=== PATIENT | male | born 1975 | race American Indian/Alaskan Native ===

== ENCOUNTER 2019-07-22 10:07 | Observation (INO) | payer BC ==
[2019-07-22] MEDS ORDERED: APRESOLINE IV ONE ×2 (10:44→11:44)
--- NOTE | 2019-07-22 10:44 | Emergency Department Report ---
ED Chest Pain HPI - General Chief Complaint: Headache Stated Complaint: HEADACHE/TIGHTNESS OF SHOULDERS Source: patient Mode of arrival: Ambulatory Limitations: No Limitations - History of Present Illness Initial Comments: 44 YO AA MALE WHO COMES TO ER TODAY WITH WORSENING HEADACHE FOR SEVERAL DAYS AND "TIGHTNESS" IN HIS LEFT SHOULDER AREA FOR A DAY. PT GOT OFF WORK THIS AM AND STATES HE THOUGHT IF HE RESTED HE WOULD FEEL BETTER. SO HE RESTED IN TRUCK AND WHEN HE GOT UP HE REPORTED FEELING NO BETTER. HE COMES TO ER FOR EVAL PMH OBESE HTN- ON LISINOPRIL 10MG DAILY FAMILY HX CAD/CVA AT YOUNG AGE; MOTHER AT 55 OF [place] AND BROTHER AT 34 OF CVA PSH R ARM SURGERY NO CIG/ETOH/DRUGS REPORTS HE DOES WORK OUT DENIES SOB. HE DOES STATE THAT HIS PAIN HAS OCCURRED WITH REST; AND SUBSIDES WITH REST. HE DENIES SOB OR SWELLING PT DOES ENDORSE PALPITATIONS; WHICH HAVE WOKE HIM UP AT NIGHT; OCCURRING OVER THE PAST COUPLE WEEKS. USUAL CARE AT [facility] MD Complaint: chest pain -: Gradual, hour(s), days(s) Onset: during rest, during exertion Pain Location: other (l shoulder) Pain Radiation: none Severity: mild Severity scale (0 -10): 4 Quality: tightness, aching, heaviness Consistency: intermittent Improves With: nothing Worsens With: exertion re: denies: nausea, vomting, diaphoresis, dyspnea, sense of impending doom Other Symptoms: palpitations. denies: cough, fever, syncope, rash, acid taste in mouth, leg swelling Treatments Prior to Arrival: none Aspirin use within the Past 7 Days: (0) No - Related Data On Oral Contraceptives: No Allergies Allergy/AdvReac Type Severity Reaction Status Date / Time No Known Allergies Allergy Verified 07/22/19 10:13 Heart Score - HEART Score History: Moderately suspicious EKG: Non-specific Age: < 45 Risk factors: > 3 risk factors or hx of atherosclerotic disease Troponin: < normal limit HEART Score: 4 ED Review of Systems ROS: Stated complaint: HEADACHE/TIGHTNESS OF SHOULDERS Other details as noted in HPI Comment: All other systems reviewed and negative Respiratory: no symptoms reported. denies: cough Cardiovascular: as per HPI ED Past Medical Hx - Past Medical History Hx Hypertension: Yes Additional medical history: obese - Surgical History Past Surgical History?: No - Family History Family history: other (mother AMI at 55y; brother of massive CVA at 34 yo) - Social History Smoking Status: Never Smoker Substance Use Type: None ED Physical Exam - General Limitations: No Limitations General appearance: alert - Head Head exam: Present: normocephalic - Eye Eye exam: Present: PERRL - ENT ENT exam: Present: mucous membranes moist - Neck Neck exam: Present: normal inspection - Respiratory Respiratory exam: Present: normal lung sounds bilaterally - Cardiovascular Cardiovascular Exam: Present: regular rate - GI/Abdominal GI/Abdominal exam: Present: soft - Rectal Rectal exam: Present: deferred - Extremities Exam Extremities exam: Present: normal inspection - Back Exam Back exam: Present: normal inspection - Neurological Exam Neurological exam: Present: alert, oriented X3, CN II-XII intact - Psychiatric Psychiatric exam: Present: normal affect, normal mood - Skin Skin exam: Present: warm, dry, intact ED Course Vital Signs 07/22/19 07/22/19 07/22/19 10:11 10:59 11:06 Temperature 97.7 F 98 F Pulse Rate 72 70 70 Respiratory 17 16 Rate Blood Pressure 175/124 118/110 Blood Pressure 181/110 [Left] O2 Sat by Pulse 98 Oximetry 07/22/19 07/22/19 07/22/19 11:49 12:30 13:51 Temperature 97.8 F Pulse Rate 75 89 93 H Respiratory 18 16 Rate Blood Pressure 186/130 Blood Pressure 187/105 166/102 [Left] O2 Sat by Pulse 100 98 Oximetry SIOMARA score - Siomara Score Age > 65: (0) No Aspirin use within the Past 7 Days: (0) No 3 or more CAD Risk Factors: (1) Yes 2 or more Angina events in past 24 hrs: (1) Yes Known CAD with more than 50% Stenosis: (0) No Elevated Cardiac Markers: (0) No ST Deviation Greater than 0.5mm: (0) No SIOMARA Score: 2 ED Medical Decision Making - Lab Data Result diagrams: 07/22/19 10:58 07/22/19 10:58 - EKG Data -: EKG Interpreted by Me EKG shows normal: sinus rhythm Rate: normal - EKG Data When compared to previous EKG there are: previous EKG unavailable Interpretation: nonspecific ST-T wave michael 07/22/19 1045 T wave inversion V4-V6 repeat EKG at 1148 T wave inversion V4-V6 and T wave inversion II - Radiology Data Radiology results: report reviewed, image reviewed - Medical Decision Making Labs 07/22/19 07/22/19 07/22/19 10:58 10:58 10:58 WBC 5.7 RBC 4.91 Hgb 14.6 Hct 43.3 MCV 88 MCH 30 MCHC 34 RDW 14.6 Plt Count 251 Lymph % (Auto) 34.9 [place] % (Auto) 9.8 H Eos % (Auto) 2.4 Baso % (Auto) 0.8 Lymph # 2.0 [place] # 0.6 Eos # 0.1 Baso # 0.0 Seg Neutrophils % 52.1 Seg Neutrophils # 2.9 Sodium 140 Potassium 4.1 Chloride 102.4 Carbon Dioxide 27 Anion Gap 15 BUN 16 Creatinine 1.0 Estimated GFR > 60 BUN/Creatinine Ratio 16 Glucose 112 H Calcium 8.8 Total Bilirubin 0.30 AST 31 ALT 26 Alkaline Phosphatase 70 Troponin T < 0.010 Total Protein 7.4 Albumin 4.2 Albumin/Globulin Ratio 1.3 Urine Bilirubin Neg Urine RBC (Auto) 1.0 Vital Signs 07/22/19 07/22/19 07/22/19 10:11 10:59 11:06 Temperature 97.7 F 98 F Pulse Rate 72 70 70 Respiratory 17 16 Rate Blood Pressure 175/124 118/110 Blood Pressure 181/110 [Left] O2 Sat by Pulse 98 Oximetry 07/22/19 07/22/19 11:49 12:30 Temperature 97.8 F Pulse Rate 75 89 Respiratory 18 Rate Blood Pressure 186/130 Blood Pressure 187/105 [Left] O2 Sat by Pulse 100 Oximetry LABS NOTED XRAY NOTED 12 LEAD NOTED REPEAT 12 LEAD NOTED WITH NOW INVERTED T IN LEAD II DISCUSSED WITH [address] DOUGLASS PT HAS NUMEROUS RISK FACTORS PT WAS GIVEN HYDRAL 10 MG IV WITH BP THEN 180/130 REPEAT HYDRAL AT NOW 20 MG IV GIVEN AND BP HAS NOT DEC CARDENE ULISSES ORDERED PT TO CARD MONITOR UA NORMAL HEAD CT NORMAL ASA GIVEN 1400 DISCUSSED CONCERNS WITH PT; HE STATES PAIN IS BETTER- BUT SAYS THIS HE IS RUBBING HIS CHEST 1430 DR HOLLAND CONTACTED FOR PT ADMIT REPEAT LABS ORDERED AND PENDING ADMIT TO ICU - Differential Diagnosis ro ACS/accelerated HTN/HTN urgency/CVA Critical care attestation.: If time is entered above; I have spent that time in minutes in the direct care of this critically ill patient, excluding procedure time. ED Disposition Clinical Impression: Hypertensive urgency, Chest pain, Obesity Disposition: DC09 OP ADMIT IP TO THIS HOSP Is pt being admited?: Yes Does the pt Need Aspirin: Yes Condition: Stable Time of Disposition: 12:34
[2019-07-22 11:09] LABS: Basophils % (Auto) 0.8 % (0.0-1.8); Eosinophils # (Auto) 0.1 K/mm3 (0.0-0.4); Eosinophils % (Auto) 2.4 % (0.0-4.3); Hematocrit 43.3 % (35.5-45.6); Hemoglobin 14.6 gm/dl (11.8-15.2); Lymphocytes % (Auto) 34.9 % (13.4-35.0); Mean Corpuscular HGB Conc 34 % (32-34); Mean Corpuscular Volume 88 fl (84-94); Monocytes # (Auto) 0.6 K/mm3 (0.0-0.8); Monocytes % (Auto) 9.8 % (0.0-7.3); Platelet Count 251 K/mm3 (140-440); Red Blood Count 4.91 M/mm3 (3.65-5.03); Red Cell Distribution Width 14.6 % (13.2-15.2)
--- NOTE | 2019-07-22 11:20 | XRay Report ---
CHEST 2 VIEWS INDICATION: Chest Pain. COMPARISON: None FINDINGS: Support devices: None. Heart: Within normal limits. Lungs/pleura: No acute air space or interstitial disease. No pneumothorax. Additional findings: None. IMPRESSION: No acute findings. Signer Name: Sanchez Velasco Jr, MD Signed: 07/22/2019 11:16 AM Workstation Name: [id number]
[2019-07-22 11:31] LABS: Alanine Aminotransferase 26 units/L (7-56); Albumin 4.2 g/dL (3.9-5); BUN/Creatinine Ratio 16; Blood Urea Nitrogen 16 mg/dL (9-20); Calcium 8.8 mg/dL (8.4-10.2); Hemolysis Index 12
[2019-07-22 12:33] LABS: Bilirubin,Urine NEG (Negative); Blood,Urine NEG (Negative); Color,Urine Yellow (Yellow); Hyaline Casts,Urine 1 /LPF; Mucus,Urine FEW /HPF; Protein,Urine <15 mg/dL mg/dL (Negative); Urobilinogen,Urine < 2.0 mg/dL (<2.0)
[2019-07-22] MEDS ORDERED: BABY ASPIRIN PO ONE (12:34)
[2019-07-22 12:51] LABS: WBC,Urine < 1.0 /HPF (0.0-6.0)
[2019-07-22] MEDS ORDERED: CARDENE 50 MG in NACL 0.9% 250ML 230 ML IV SCH (13:00)
--- NOTE | 2019-07-22 13:19 | Cat Scan Report ---
CT HEAD WITHOUT CONTRAST INDICATION : headache HTN. TECHNIQUE: Axial imaging performed from the skull apex through the skull base without the use of con trast. All CT scans at this location are performed using CT dose reduction for ALARA by means of aut omated exposure control. COMPARISON: None FINDINGS: Parenchyma: No abnormal density. No mass, hemorrhage or edema. Ventricles: Ventricles are normal in size and appear symmetric. Soft tissues: Soft tissues including the orbits appear normal. Bones: No acute osseous abnormality. Sinuses: Sinuses and mastoid air cells are clear. IMPRESSION: Normal head CT. Signer Name: Fernando oSto MD Signed: 07/22/2019 1:15 PM Workstation Name: [id number]
[2019-07-22] MEDS ORDERED: COREG PO STA (17:49)
[2019-07-22] MEDS ORDERED: COREG ONE (18:15)
[2019-07-22] MEDS ORDERED: APRESOLINE ONE (18:15)
[2019-07-22] MEDS: APRESOLINE PO SCH (18:30)
[2019-07-22] MEDS ORDERED: DILAUDID IV PRN (18:32)
[2019-07-22] MEDS ORDERED: TYLENOL PO ONE (20:07)
[2019-07-22] MEDS ORDERED: TYLENOL ONE (20:17)
[2019-07-22] MEDS ORDERED: TYLENOL PO PRN (21:12)
[2019-07-22] MEDS ORDERED: SODIUM CHLORIDE FLUSH SYRINGE 10 ML IV PRN (21:12)
[2019-07-22] MEDS ORDERED: ZOFRAN IV PRN (21:12)
[2019-07-22] MEDS ORDERED: PERCOCET 5/325 PO PRN (21:12)
[2019-07-22] MEDS ORDERED: IBUPROFEN PO PRN (21:12)
--- NOTE | 2019-07-22 21:12 | History and Physical Report ---
History of Present Illness Date of examination: 07/22/19 Date of admission: 07/22/19 14:07 Medications and Allergies Allergies Allergy/AdvReac Type Severity Reaction Status Date / Time No Known Allergies Allergy Verified 07/22/19 10:13 Home Medications Medication Instructions Recorded Confirmed Last Taken Type Lisinopril [Zestril TAB] 10 mg PO DAILY 07/22/19 07/22/19 07/21/19 History Active Meds: Active Medications Carvedilol (Coreg) 12.5 mg PO BID CHEVY Hydralazine HCl (Apresoline) 50 mg PO Q8H CHEVY Last Admin: 07/22/19 18:30 Dose: 50 mg Documented by: Hydromorphone HCl (Dilaudid) 0.5 mg IV Q3H PRN PRN Reason: Pain , Severe (7-10) Losartan Potassium (Cozaar) 100 mg PO DAILY ONE Stop: 07/23/19 08:01 Exam - Constitutional Vitals: Temp Pulse Resp BP Pulse Ox 97.8 F 84 18 144/91 94 07/22/19 12:30 07/22/19 20:32 07/22/19 18:30 07/22/19 21:00 07/22/19 21:00 Results - Labs CBC & Chem 7: 07/22/19 10:58 07/22/19 10:58 Labs: Laboratory Last Values WBC 5.7 K/mm3 (4.5-11.0) 07/22/19 10:58 RBC 4.91 M/mm3 (3.65-5.03) 07/22/19 10:58 Hgb 14.6 gm/dl (11.8-15.2) 07/22/19 10:58 Hct 43.3 % (35.5-45.6) 07/22/19 10:58 MCV 88 fl (84-94) 07/22/19 10:58 MCH 30 pg (28-32) 07/22/19 10:58 MCHC 34 % (32-34) 07/22/19 10:58 RDW 14.6 % (13.2-15.2) 07/22/19 10:58 Plt Count 251 K/mm3 (140-440) 07/22/19 10:58 Lymph % (Auto) 34.9 % (13.4-35.0) 07/22/19 10:58 [place] % (Auto) 9.8 % (0.0-7.3) H 07/22/19 10:58 Eos % (Auto) 2.4 % (0.0-4.3) 07/22/19 10:58 Baso % (Auto) 0.8 % (0.0-1.8) 07/22/19 10:58 Lymph # 2.0 K/mm3 (1.2-5.4) 07/22/19 10:58 [place] # 0.6 K/mm3 (0.0-0.8) 07/22/19 10:58 Eos # 0.1 K/mm3 (0.0-0.4) 07/22/19 10:58 Baso # 0.0 K/mm3 (0.0-0.1) 07/22/19 10:58 Seg Neutrophils % 52.1 % (40.0-70.0) 07/22/19 10:58 Seg Neutrophils # 2.9 K/mm3 (1.8-7.7) 07/22/19 10:58 D-Dimer 173.01 ng/mlDDU (0-234) 07/22/19 14:41 Sodium 140 mmol/L (137-145) 07/22/19 10:58 Potassium 4.1 mmol/L (3.6-5.0) 07/22/19 10:58 Chloride 102.4 mmol/L (98-107) 07/22/19 10:58 Carbon Dioxide 27 mmol/L (22-30) 07/22/19 10:58 Anion Gap 15 mmol/L 07/22/19 10:58 BUN 16 mg/dL (9-20) 07/22/19 10:58 Creatinine 1.0 mg/dL (0.8-1.5) 07/22/19 10:58 Estimated GFR > 60 ml/min 07/22/19 10:58 BUN/Creatinine Ratio 16 % 07/22/19 10:58 Glucose 112 mg/dL (75-100) H 07/22/19 10:58 Calcium 8.8 mg/dL (8.4-10.2) 07/22/19 10:58 Total Bilirubin 0.30 mg/dL (0.1-1.2) 07/22/19 10:58 AST 31 units/L (5-40) 07/22/19 10:58 ALT 26 units/L (7-56) 07/22/19 10:58 Alkaline Phosphatase 70 units/L (35-129) 07/22/19 10:58 Troponin T < 0.010 ng/mL (0.00-0.029) 07/22/19 14:41 Total Protein 7.4 g/dL (6.3-8.2) 07/22/19 10:58 Albumin 4.2 g/dL (3.9-5) 07/22/19 10:58 Albumin/Globulin Ratio 1.3 % 07/22/19 10:58 Urine Color Yellow (Yellow) 07/22/19 10:58 Urine Turbidity Clear (Clear) 07/22/19 10:58 Urine pH 5.0 (5.0-7.0) 07/22/19 10:58 Ur Specific [place] 1.015 (1.003-1.030) 07/22/19 10:58 Urine Protein <15 mg/dl mg/dL (Negative) 07/22/19 10:58 Urine Glucose (UA) Neg mg/dL (Negative) 07/22/19 10:58 Urine Ketones Neg mg/dL (Negative) 07/22/19 10:58 Urine Blood Neg (Negative) 07/22/19 10:58 Urine Nitrite Neg (Negative) 07/22/19 10:58 Urine Bilirubin Neg (Negative) 07/22/19 10:58 Urine Urobilinogen < 2.0 mg/dL (<2.0) 07/22/19 10:58 Ur Leukocyte Esterase Neg (Negative) 07/22/19 10:58 Urine WBC (Auto) < 1.0 /HPF (0.0-6.0) 07/22/19 10:58 Urine RBC (Auto) 1.0 /HPF (0.0-6.0) 07/22/19 10:58 Hyaline Casts 1 /LPF 07/22/19 10:58 Urine Mucus Few /HPF 07/22/19 10:58
[2019-07-22] MEDS ORDERED: APRESOLINE IV PRN (21:21)
[2019-07-22] MEDS: PEPCID PO SCH (23:30)
[2019-07-22] MEDS: SODIUM CHLORIDE FLUSH SYRINGE 10 ML IV SCH (23:30)
[2019-07-23] MEDS: COREG PO SCH ×2 (00:10→10:58)
[2019-07-23] MEDS: APRESOLINE PO SCH ×2 (02:53→10:59)
[2019-07-23 05:49] LABS: Basophils % (Auto) 0.4 % (0.0-1.8); Eosinophils # (Auto) 0.1 K/mm3 (0.0-0.4); Eosinophils % (Auto) 1.4 % (0.0-4.3); Hemoglobin 14.8 gm/dl (11.8-15.2); Lymphocytes # (Auto) 1.6 K/mm3 (1.2-5.4); Lymphocytes % (Auto) 24.3 % (13.4-35.0); Mean Corpuscular HGB Conc 34 % (32-34); Mean Corpuscular Volume 88 fl (84-94); Monocytes # (Auto) 0.7 K/mm3 (0.0-0.8); Platelet Count 271 K/mm3 (140-440); Red Blood Count 4.98 M/mm3 (3.65-5.03); Red Cell Distribution Width 14.5 % (13.2-15.2)
[2019-07-23 06:12] LABS: Alanine Aminotransferase 22 units/L (7-56); BUN/Creatinine Ratio 13; Blood Urea Nitrogen 13 mg/dL (9-20); Calcium 8.8 mg/dL (8.4-10.2); Hemolysis Index 64
--- NOTE | 2019-07-23 06:47 | Event Note ---
Date: 07/22/19 See h/p in reports Htn emergency Chest pain- r/o DE
--- NOTE | 2019-07-23 07:04 | History and Physical Report ---
CHIEF COMPLAINT: 1. Headache. 2. Tightness in the left shoulder. 3. Chest pain. HISTORY OF PRESENT ILLNESS: A 44-year-old -[place] male with history of hypertension and noncompliance and strong family history of coronary artery disease, comes in for chest pain and left shoulder tightness for 1 day. The patient got about this morning and thought he would feel better if he rested. After resting, patient still felt headache and left shoulder tightness. No shortness of breath. No exacerbating or relieving factors. The patient is taking only lisinopril 10 mg once a day. PAST MEDICAL HISTORY: Significant for hypertension and obesity. FAMILY HISTORY: Significant for coronary artery disease and cerebrovascular accident at a young age. Mother at age of 55 because of acute [place]. Brother at age 34 because of cerebrovascular accident. PAST SURGICAL HISTORY: Right arm surgery. SOCIAL HISTORY: Does not smoke. No alcohol. FAMILY HISTORY: As mentioned, severe coronary artery disease. REVIEW OF SYSTEMS: Significant for headache and chest tightness and left shoulder pain. No shortness of breath. Otherwise, review of systems negative. PHYSICAL EXAMINATION: GENERAL: Middle-aged male, cooperative during examination, obese. VITAL SIGNS: Initial blood pressure was 175/124. Temperature 97.7, pulse is 72, respirations are 17. HEENT: Unremarkable. Pupils equal and reactive. NECK: Supple, no lymphadenopathy, no thyromegaly. LUNGS: Clear to auscultation and percussion. Good air entry. CARDIOVASCULAR SYSTEM: S1, S2 heard. No gallop, no murmur, no rub. Apical impulse in left fifth intercostal space and midclavicular line. ABDOMEN: Soft and benign. No hepatosplenomegaly. No guarding, no rigidity. Hernial orifices are normal. EXTREMITIES: Good pedal pulses. No pedal edema. LABORATORY DATA: EKG shows sinus rhythm, heart rate of 84 per minute. Abnormal T waves. T-wave inversion in V4, V5, V6. No LVH. Chest x-ray, no acute findings. Labs significant for normal CBC, normal electrolytes. Glucose is 112 and A1c is 6.1. Troponins are negative. Urine negative. ASSESSMENT AND PLAN: 1. Hypertensive emergency. The patient was started on IV Cardene drip. The patient was also started on losartan, Coreg, and amlodipine. Blood pressure came down to manageable levels around 150/104 and the patient was downgraded to telemetry. The patient was counseled about blood pressure medications. The patient initiated on 3 new medications and lisinopril was stopped. The patient to continue Coreg 12.5 b.i.d., hydralazine 50 q. 8 hours and losartan 100 mg p.o. daily. 2. Chest pain, rule out myocardial infarction, chest pain protocol. Stress test in the morning. 3. Morbid obesity. The patient counseled. The patient to follow up with Bariatric Surgery as outpatient. 4. Deep venous thrombosis prophylaxis, Lovenox 40 mg subcutaneous daily. JOB# [id number] ENIO/RICKY PONCE
[2019-07-23] MEDS ORDERED: LEXISCAN IV ONE (07:25)
[2019-07-23] MEDS ORDERED: COZAAR PO ONE ×2 (08:00→11:15)
[2019-07-23] MEDS: PEPCID PO SCH (10:57)
[2019-07-23] MEDS: SODIUM CHLORIDE FLUSH SYRINGE 10 ML IV SCH (11:05)
[2019-07-23 12:27] VITALS: BP 136/80
--- NOTE | 2019-07-23 15:56 | Discharge Summary ---
Providers - Providers Date of Admission: 07/22/19 14:07 Date of discharge: 07/23/19 Attending physician: TONY BORRERO 07/23/19 08:22 Consult to Physician [CONS] Routine Comment: Consulting Provider: LINDA CORTÉS Physician Instructions: Reason For Exam: chest pain Primary care physician: [facility] Hospitalization Condition: Stable Exam - Constitutional Vitals: Temp Pulse Resp BP Pulse Ox 97.7 F 78 18 136/80 94 07/23/19 07:27 07/23/19 12:26 07/23/19 07:27 07/23/19 12:26 07/23/19 07:27 Plan Activity: no restrictions Diet: low salt Additional Instructions: Advised weight reduction and medically stable. If you have severe chest pain or shortness of breath contact M.D. or go to emergency room. Having recurrent chest pain diminished to see punch press feeder as mentioned below Follow up with: [facility] [Primary Care Provider] - 7 Days LINDA CORTÉS MD [Staff Physician] - 7 Days Prescriptions: Carvedilol [Coreg] 12.5 mg PO BID #60 tablet Famotidine [Pepcid] 20 mg PO BID #30 tablet
--- NOTE | 2019-07-23 17:26 | Consultation ---
History of Present Illness Consult date: 07/23/19 Consult reason: chest pain History of present illness: 44-year-old man with a history of hypertension, presented to the hospital with 3 days of headache and systolic blood pressure 175. In the emergency room he had a head CT scan that was negative. Consultation was requested for "chest pain", but the patient denies any anginal type chest pain, instead reported some left shoulder muscle tightness. Serial ECGs were normal sinus rhythm with nonspecific ST and T-wave abnormalities. A stress test was ordered by the medical team, during which he exercised for 7 minutes of [place] protocol, no chest pain and no ST changes of ischemia. Thallium images were negative. Past History Past Medical History: hypertension, other (obesity) Medications and Allergies Allergies Allergy/AdvReac Type Severity Reaction Status Date / Time No Known Allergies Allergy Verified 07/22/19 10:13 Home Medications Medication Instructions Recorded Confirmed Last Taken Type Lisinopril [Zestril TAB] 10 mg PO DAILY 07/22/19 07/22/19 07/21/19 History Carvedilol [Coreg] 12.5 mg PO BID #60 tablet 07/23/19 Unknown Rx Famotidine [Pepcid] 20 mg PO BID #30 tablet 07/23/19 Unknown Rx Review of Systems Cardiovascular: chest pain, no orthopnea, no palpitations, no rapid/irregular heart beat, no edema, no syncope, no lightheadedness, no shortness of breath Physical Examination Vital Signs Temp Pulse Resp BP Pulse Ox 97.7 F 72 17 175/124 98 07/22/19 10:11 07/22/19 10:11 07/22/19 10:11 07/22/19 10:11 07/22/19 10:11 General appearance: no acute distress HEENT: Positive: PERRL Neck: Positive: neck supple Cardiac: Positive: Reg Rate and Rhythm Lungs: Positive: Decreased Breath Sounds Neuro: Positive: Grossly Intact Abdomen: Positive: Soft Male genitourinary: Positive: deferred Skin: Positive: Clear Extremities: Absent: edema Results 07/23/19 04:43 07/23/19 04:43 Cardiac Enzymes 07/23/19 Range/Units 04:43 AST 26 (5-40) units/L CBC 07/23/19 Range/Units 04:43 WBC 6.6 (4.5-11.0) K/mm3 RBC 4.98 (3.65-5.03) M/mm3 Hgb 14.8 (11.8-15.2) gm/dl Hct 44.0 (35.5-45.6) % Plt Count 271 (140-440) K/mm3 Lymph # 1.6 (1.2-5.4) K/mm3 [place] # 0.7 (0.0-0.8) K/mm3 Eos # 0.1 (0.0-0.4) K/mm3 Baso # 0.0 (0.0-0.1) K/mm3 Comprehensive Metabolic Panel 07/23/19 Range/Units 04:43 Sodium 136 L (137-145) mmol/L Potassium 4.2 (3.6-5.0) mmol/L Chloride 102.8 (98-107) mmol/L Carbon Dioxide 24 (22-30) mmol/L BUN 13 (9-20) mg/dL Creatinine 1.0 (0.8-1.5) mg/dL Glucose 112 H (75-100) mg/dL Calcium 8.8 (8.4-10.2) mg/dL AST 26 (5-40) units/L ALT 22 (7-56) units/L Alkaline Phosphatase 67 (35-129) units/L Total Protein 7.4 (6.3-8.2) g/dL Albumin 4.0 (3.9-5) g/dL EKG interpretations - Telemetry EKG Rhythm: Sinus Rhythm Assessment and Plan - Patient Problems (1) Chest pain Status: Acute Plan to address problem: Chest pain is atypical, patient's major complaint on presentation was headache associated with uncontrolled blood pressure. Chest pain workup: Serial ECGs negative, exercise thallium normal. Stable for cardiac discharge, will defer to internal medicine for increase blood pressure medications for optimal management.
[2019-07-23] MEDS ORDERED: LOVENOX SUB-Q SCH (22:00)
--- NOTE | 2019-07-24 02:45 | Treadmill Report ---
THALLIUM STRESS TEST LEFT VENTRICLE: Left ventricular chamber size is within normal spread. Perfusion study demonstrates homogeneous uptake of the tracer in all segments, no significant defects identified. Mild diaphragmatic attenuation artifact is noted. Gated analysis demonstrates normal left ventricular systolic function, ejection fraction 58%. CONCLUSION: Normal myocardial perfusion study. JOB# [id number] CA/NTS
== END 2019-07-23 17:17 | disposition home or self-care (01) ==
LOC: ED 10:07 → CC1 14:07 → INTOOBSV 14:07 → CC1 16:57 → 4A 17:32 → CC1 18:18 → 4A 20:27
PROVIDERS: ADMIT Internal Medicine; ATTEND Internal Medicine
DX: R07.89 Other chest pain (principal); I16.1 Hypertensive emergency; R07.9 Chest pain, unspecified; E66.01 Morbid (severe) obesity due to excess calories; Z68.42 Body mass index [BMI] 45.0-49.9, adult
CPT/HCPCS: 36415; 70450; 71046; 78452; 80053; 81001; 83036; 84484; 85025; 85379; 93005; 93010; 93017; 96374; 96376; 99285; A9502; G0378; J0360; J2785; J7050